=== PATIENT | male | born 1980 | race Caucasian/White ===

== ENCOUNTER 2016-11-19 12:27 | Emergency (ER) | payer OTHER ==
[~2016-11-19] VITALS: Ht 177.8 cm; Wt 89.3 kg
[~2016-11-19 12:27] MED LIST: LOTRIMIN AF90 GM TP; NAPROSYN500 MG PO; NOHOMEMEDS
[2016-11-19] MEDS ORDERED: PREDNISONE10 MG PO (13:17)
[2016-11-19] MEDS ORDERED: DIPROSONE 0.05%15 GM TP (13:17)
[2016-11-19 13:32] VITALS: BP 132/87
== END 2016-11-19 13:34 | disposition home or self-care (01) ==
LOC: EME 12:27
DX: L30.1 Dyshidrosis [pompholyx] (principal)

== ENCOUNTER 2018-02-08 14:25 | Emergency (ER) | payer OTHER ==
[~2018-02-08] VITALS: Ht 177.8 cm; Wt 87.7 kg
[~2018-02-08 14:25] MED LIST changes: +DIPROSONE 0.05%15 GM TP; +PREDNISONE10 MG PO
[2018-02-08 14:58] LABS: HEMATOCRIT 46.1 % (38.0-50.0); HEMOGLOBIN 16.2 G/DL (12.5-16.6); MCH 28.7 PG (29.0-34.0); MCHC 35.1 G/DL (30.0-36.0); MCV 81.6 FL (86-99); PLATELET COUNT 282 K/uL (156-360); RBC DIS.WIDTH-SD 35.5 % (39-53); RED BLOOD COUNT 5.65 M/uL (4.00-5.50); WHITE BLOOD COUNT 4.6 K/uL (4.1-10.2)
[2018-02-08 15:07] LABS: CHLORIDE 103 mEq/L (99-109); SODIUM 136 mEq/L (136-147)
[2018-02-08 15:08] LABS: GLUCOSE 187 mg/dL (70-99)
[2018-02-08 15:12] LABS: GFR ESTIMATE (CALCULATED) > 59 mL/min/ (58.99-99999)
[2018-02-08 15:13] LABS: UREA NITROGEN (BUN) 9 mg/dL (9-23)
[2018-02-08 15:38] LABS: ALBUMIN 4.3 g/dL (3.2-4.8)
[2018-02-08 15:41] LABS: TOTAL PROTEIN 7.3 g/dL (6.4-8.3)
[2018-02-08 15:43] LABS: ALKALINE PHOSPHATASE 88 IU/L (3-129); TOTAL BILIRUBIN 1.3 mg/dL (0.0-1.0)
[2018-02-08 15:46] LABS: AST (GOT) 16 IU/L (2-34)
[2018-02-08 15:47] LABS: ALT (GPT) 17 IU/L (3-49); LIPASE 33 U/L (1.0-51.0)
[2018-02-08 16:41] LABS: APPEARANCE CLEAR ((CLEAR)); BILIRUBIN NEGATIVE; BLOOD SMALL; COLOR YELLOW ((YELLOW)); GLUCOSE (STRIP) 50; KETONES NEGATIVE; LEUKOCYTES NEGATIVE; NITRITE NEGATIVE; PROTEIN (STRIP) NEGATIVE; SPECIFIC GRAVITY 1.008 (1.000-1.030)
[2018-02-08 16:44] LABS: BACTERIA NONE SEEN /HPF; EPITHELIAL CELLS NONE SEEN /HPF; MUCUS TRACE /LPF; UCUL ADDED? NO; WHITE BLOOD CELLS 0-5 /HPF (0-5)
[2018-02-08] MEDS ORDERED: PERCOCET 5/31 TABLET PO (17:30)
[2018-02-08 17:42] VITALS: BP 134/84
== END 2018-02-08 17:41 | disposition home or self-care (01) ==
LOC: EME 14:25
DX: N13.2 Hydronephrosis with renal and ureteral calculous obstruction (principal)
CPT/HCPCS: 74176; 80048; 80053; 81003; 83690; 85027; 99281; 99284; J1885; J2405